=== PATIENT | male | born 1975 | race Caucasian/White ===

== ENCOUNTER 2020-05-19 06:40 | Outpatient (CLI) | payer OTHER, SELFPAY ==
--- NOTE | 2020-05-21 14:37 | SLEEP_ITS ---
Home Sleep Study. DATE OF STUDY: 05/19/2020 ORDERING PHYSICIAN: Dorinda Tillman MD. REASON FOR STUDY: Sleep apnea. 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 His tells him that he snores loudly and he gasps for air at night. This is frequent and very, very loud. He does not awaken from sleep feeling short of breath. He rarely awakens at night with heartburn, belching, or coughing. He wakes up frequently throughout the night. He frequently has trouble sleeping if he has a cold, occasionally wakes up gasping for breath at night, occasionally has breathing problems witnessed by others, rarely sweats excessively at night and does not notice his heart pounding or beating irregularly at night. He occasionally falls asleep during the day rarely involuntarily, never while driving. He does not have loss of muscle tone with strong emotion. He rarely has daytime difficulties due to excessive sleepiness. He does not feel paralyzed on waking or falling asleep. Does not have vivid dreamlike scenes upon awakening or falling asleep and is not afraid to go to sleep. He rarely has nightmares. He rarely remembers his dreams. He rarely has racing thoughts, feelings of sadness, depression or anxiety. He occasionally has muscular tension. He rarely notices parts of his body jerking, rarely kicks at night, rarely has crawly achy feelings in the legs or leg pain at night, rarely has morning jaw pain and does not grind his teeth at night. He rarely is bothered by pain during the day and rarely is awakened by pain during the night. He rarely wakes up feeling stiff in the morning. He occasionally wakes up with sore achy muscles and pain in the neck and spine. Normal bedtime is either 10:00 p.m. or 6:00 a.m. depending on which shift he works. He takes 5 to 10 minutes to fall asleep, waking 2 to 3 times at night for 5 to 10 minutes. When he awakens at night, he will use the bathroom. He wakes in the morning either at 5:00 a.m. or 12 noon. He estimates about 6 or 8 hours of sleep at night. He does work shift work. He does take naps. A short nap is not refreshing. He is usually drowsy in the morning for 2 hours or longer. MEDICAL COMORBIDITIES: 1. Hyperlipidemia. 2. Hypertension. 3. Asthma. 4. Nasal congestion. 5. Low testosterone. MEDICATIONS: 1. Cialis 2.5 mg orally p.r.n. 2. ProAir rescue inhaler 2 puffs q.6 hours p.r.n. shortness of breath. HABITS: Never smoked tobacco. No caffeine or alcohol. DESCRIPTION OF THE STUDY: On the [place] Sleepiness Scale, the score is 13. This was conducted as an unattended type 3 portable home sleep test using 4 channel monitoring with respiratory effort channel, snoring channel, saturation channel, and heart rate channel. The study was scored using [facility] guidelines. The duration was 9 hours 14 minutes longer than his usual sleep episode, which is usually 6 or 8 hours. The AHI is 9, elevated. Respiratory disturbance index is 12. Oxygen desaturation index is 6.6. Lowest desaturation 87%, which is abnormally low. He had 41 apneas. Of these, 85% of his apneas or 35 were central, 15% apneas or 6 were obstructive. He has 41 hypopneas, 742 snoring events, 61 desaturations with no time spent below 88%. Heart rate ranged from 40 to 112. IMPRESSION: This home sleep test shows evidence of at least [id number] obstructive sleep apnea syndrome with an AHI of 9, oxygen desaturation index of 6.6, lowest desaturation 87%, with frequent loud snoring. The majority of the apneas, 85% were central. He does not have a known history of heart failure or stroke, conditions that would predispose to central apneas. Home sleep tests are not as acc
== END 2020-05-19 06:41 | disposition home or self-care (01) ==
LOC: ANHCSM 06:41
PROVIDERS: PCP Internal Medicine; Visit Provider Internal Medicine
DX: G47.33 Obstructive sleep apnea (adult) (pediatric) (principal)
CPT/HCPCS: 95806

== ENCOUNTER 2020-09-01 01:56 | Outpatient (CLI) | payer OTHER, SELFPAY ==
[2020-09-01 22:35] LABS: SARS-CoV-2 RNA PCR Negative
== END 2020-09-01 01:57 | disposition home or self-care (01) ==
LOC: ANHCOVIDDT 01:56
PROVIDERS: PCP Internal Medicine; Visit Provider Internal Medicine Critical Care Medicine
DX: Z20.828 Contact with and (suspected) exposure to other viral communicable diseases (principal); R68.89 Other general symptoms and signs
CPT/HCPCS: 87635; C9803; U0003

== ENCOUNTER 2020-09-03 11:17 | Outpatient (CLI) | payer OTHER, SELFPAY ==
--- NOTE | 2020-10-18 09:21 | WPDSLEEPSTUD ---
Sleep Study Date of Study: 09/03/20 Ordering Provider: Dorinda Tillman MD Interpreting Physician: Patricia King MD Sleep Study Type: CPAP Titration Height: 1.91 m Weight: 108.862 kg Body Mass Index: 29.9 Neck Circumference: 44.45 cm Butler: 12 Reason for Sleep Study sleep apnea, home sleep test May 19, 2020 with an AHI of 9 with 85% of the apneas scored as centrals, oxygen desaturation 87% and frequent loud snoring Sleep History Aaron Bryson is a 45 year old man with multiple sleep complaints. On 05/19/2020 he had a home sleep test showing mild sleep apnea, mainly central events, and presents for a CPAP titration. His tells him that he snores loudly and he gasps for air at night. This is frequent and very, very loud. He does not awaken from sleep feeling short of breath. He rarely awakens at night with heartburn, belching, or coughing. He wakes up frequently throughout the night. He frequently has trouble sleeping if he has a cold, occasionally wakes up gasping for breath at night, occasionally has breathing problems witnessed by others, rarely sweats excessively at night and does not notice his heart pounding or beating irregularly at night. He occasionally falls asleep during the day rarely involuntarily, never while driving. He does not have loss of muscle tone with strong emotion. He rarely has daytime difficulties due to excessive sleepiness. He does not feel paralyzed on waking or falling asleep. Does not have vivid dreamlike scenes upon awakening or falling asleep and is not afraid to go to sleep. He rarely has nightmares. He rarely remembers his dreams. He rarely has racing thoughts, feelings of sadness, depression or anxiety. He occasionally has muscular tension. He rarely notices parts of his body jerking, rarely kicks at night, rarely has crawly achy feelings in the legs or leg pain at night, rarely has morning jaw pain and does not grind his teeth at night. He rarely is bothered by pain during the day and rarely is awakened by pain during the night. He rarely wakes up feeling stiff in the morning. He occasionally wakes up with sore achy muscles and pain in the neck and spine. Normal bedtime is either 10:00 p.m. or 6:00 a.m. depending on which shift he works. He takes 5 to 10 minutes to fall asleep, waking 2 to 3 times at night for 5 to 10 minutes. When he awakens at night, he will use the bathroom. He wakes in the morning either at 5:00 a.m. or 12 noon. He estimates about 6 or 8 hours of sleep at night. He does work shift work. He does take naps. A short nap is not refreshing. He is usually drowsy in the morning for 2 hours or longer. HABITS: Never smoked tobacco. No caffeine or alcohol. [facility] Past Medical History Medical History (Updated 10/18/20 @ 09:39 by Patricia King MD) Asthma Hyperlipidemia Hypertension Low testosterone Nasal congestion Obstructive sleep apnea (~04/2020) Social History Social History (Updated 10/18/20 @ 09:31 by Patricia King MD) Smoking status: Never smoker Alcohol intake: never Substance use: never Medications Medications: 1. Cialis 2.5 mg orally p.r.n. 2. ProAir rescue inhaler 2 puffs q.6 hours p.r.n. shortness of breath. Sleep Procedure This test was performed using the [employer] multiple channel system including EOG, EEG, submental EMG, EKG, nasal and oral airflow using thermistors and nasal pressure sensors, chest and abdominal belts for body position data, and pulse oximetry. Video monitoring was also performed. The study was scored using CMS guidelines. The patient was started on CPAP at 5 cm gradually increasing to 8 cm of water pressure using a medium Borges FX mask with nasal pillows and a heated humidifier. Sleep Architecture The recording time is 453.8 minutes. The sleep time is 363.9 minutes. The sleep efficiency is 80.2%. Sleep latency is 7.9 minutes. REM latency is short at 68 minutes consistent with hypersomnia. there were
[2020-10-18 09:47] VITALS: BMI 29.9
== END 2020-09-03 11:18 | disposition home or self-care (01) ==
LOC: ANHCSM 11:17
PROVIDERS: PCP Internal Medicine; Visit Provider Internal Medicine
DX: G47.33 Obstructive sleep apnea (adult) (pediatric) (principal); E78.5 Hyperlipidemia, unspecified; I10 Essential (primary) hypertension; J45.909 Unspecified asthma, uncomplicated
CPT/HCPCS: 95811

== ENCOUNTER 2021-11-30 18:30 | Emergency (ER) | payer OTHER, SELFPAY ==
--- NOTE | 2021-11-30 18:36 | ED.URI ---
HPI - URI/Sore Throat General Chief Complaint: Upper Respiratory Infection Stated Complaint: cough tight chest Time Seen by Provider: 11/30/21 18:36 Source: patient and RN notes reviewed History of Present Illness HPI Narrative: Patient is a 46-year-old male who presents the urgent care with complaints of a chronic cough since having Covid around [place]. Patient states that the shortness of breath is intermittent and he does have an old albuterol inhaler that he uses as needed. Patient states that he has been having some burning in the chest which she contributes to his history of reflux. Patient states that he has had a full cardiac work-ups with stress test without any cardiac related events. Patient states that he does not have chest pain. States that he has not used anything [id number] for his symptoms. Denies of any recent fevers, nausea, vomiting, difficulty breathing. No other acute complaints. No acute distress noted. Patient aware of the plan of care. Some parts of this dictation were generated by voice recognition software and may contain typographical and/or grammatical inaccuracies. Related Data Home Medications Medication Instructions Recorded Confirmed ezetimibe 10 mg PO DAILY 11/30/21 11/30/21 tadalafil 2.5 mg PO DAILY 11/30/21 11/30/21 Allergies Allergy/AdvReac Type Severity Reaction Status Date / Time No Known Allergies Allergy Unknown Verified 11/30/21 18:44 Review of Systems Review of Systems: CONSTITUTIONAL: Denies fever, chills, or sweats. EYES: Denies visual changes, redness, or discharge. ENT: Denies rhinorrhea, congestion, sore throat, or otalgia. CARDIOVASCULAR: Denies chest pain, palpitations, or edema. RESPIRATORY: Reports of chronic cough and intermittent dyspnea GASTROINTESTINAL: Denies abdominal pain, nausea, vomiting, or diarrhea. GENITOURINARY: Denies dysuria or hematuria. SKIN: Denies rash or itching. MUSCULOSKELETAL: Denies back pain, joint pain, or myalgia. NEUROLOGIC: Denies headache, numbness, or weakness. All other systems reviewed are negative, except as documented in HPI. [facility] Past Medical History Medical History (Updated 11/30/21 @ 18:55 by ROXY Edge) Asthma Hyperlipidemia Hypertension Low testosterone Nasal congestion Obstructive sleep apnea (~04/2020) Social History Social History (Updated 10/18/20 @ 09:31 by Patricia King MD) Smoking status: Never smoker Alcohol intake: never Substance use: never Comments At the time of my signature, I reviewed and agree with the nursing past medical, surgical, social, and family history. There is no relevant family history pertinent to the patient complaint. Exam Narrative: GENERAL: This is a well-nourished, well-developed patient, in no apparent distress. HEAD: normocephalic, atraumatic. EYES: PERRL. Sclera clear/white. Vision is grossly intact. EARS: External ears normal, auditory canals clear and without drainage, TMs normal without perforation. Hearing grossly intact. NOSE: External nose normal with no obvious nasal discharge, nares without redness, no rhinorrhea. THROAT: Mucous membranes moist, posterior pharynx clear. Moderate postnasal drainage NECK: Neck supple CARDIOVASCULAR: Regular rate and rhythm without murmurs, gallops, or rubs. RESPIRATORY: Slight cough throughout exam. Clear to auscultation. Breath sounds equal bilaterally. No wheezes, rales, or rhonchi. SKIN: warm, intact with no suspicious lesions or rash, good texture and turgor. NEURO: awake, alert, and oriented to person, place and time. There were no obvious focal neurologic abnormalities. EXTREMITIES: No clubbing, cyanosis, or edema. Course Course Level of Care: Express Care Visit Vital Signs Vital signs: Vital Signs Temperature 97.2 F L 11/30/21 18:39 Pulse Rate 83 11/30/21 18:39 Respiratory Rate 18 11/30/21 18:39 Blood Pressure 128/111 H 11/30/21 18:39 Pulse Oximetry 99 11/30/21 18:39
[2021-11-30 18:39] VITALS: BP 128/111; PULSE 83; RESP 18; TEMP 36.2; O2SAT 99
== END 2021-11-30 18:57 | disposition home or self-care (01) ==
PROVIDERS: Emergency Provider Nurse Practitioner Family; PCP Internal Medicine
DX: R05.9 Cough, unspecified (principal); U09.9 Post COVID-19 condition, unspecified; J45.909 Unspecified asthma, uncomplicated; E78.5 Hyperlipidemia, unspecified; I10 Essential (primary) hypertension; G47.30 Sleep apnea, unspecified; G47.33 Obstructive sleep apnea (adult) (pediatric)
CPT/HCPCS: 99213; G0463

== ENCOUNTER 2022-06-29 12:27 | Emergency (ER) | payer OTHER, SELFPAY ==
--- NOTE | 2022-06-29 12:28 | ED.URI ---
HPI - URI/Sore Throat General Chief Complaint: Upper Respiratory Infection Stated Complaint: congestion and sinus pressure Time Seen by Provider: 06/29/22 12:28 Source: patient and RN notes reviewed History of Present Illness HPI Narrative: Patient is a 46-year-old male who presents the urgent care with complaints of sinus pressure/congestion, sore throat. Patient states that symptoms started yesterday and while he was working overnight he developed a cough and a headache. Patient denies any ill exposures. States that he had a negative at home COVID test. Patient has been taking Robitussin for his symptoms. No other acute complaints. No acute distress noted. Patient aware of the plan of care. Some parts of this dictation were generated by voice recognition software and may contain typographical and/or grammatical inaccuracies. Related Data Home Medications Medication Instructions Recorded Confirmed tadalafil 2.5 mg tablet 2.5 mg PO DAILY 11/30/21 06/29/22 evolocumab 140 mg/mL subcutaneous 140 mg subcut DAILY 06/29/22 06/29/22 pen injector (Repatha SureClick) Allergies Allergy/AdvReac Type Severity Reaction Status Date / Time No Known Allergies Allergy Unknown Verified 06/29/22 12:41 Review of Systems Review of Systems: CONSTITUTIONAL: Denies fever, chills, or sweats. EYES: Denies visual changes, redness, or discharge. ENT: Reports of congestion, sinus pressure, sore throat CARDIOVASCULAR: Denies chest pain, palpitations, or edema. RESPIRATORY: Reports of cough GASTROINTESTINAL: Denies abdominal pain, nausea, vomiting, or diarrhea. GENITOURINARY: Denies dysuria or hematuria. SKIN: Denies rash or itching. MUSCULOSKELETAL: Denies back pain, joint pain, or myalgia. NEUROLOGIC: Reports of headache All other systems reviewed are negative, except as documented in HPI. [facility] Past Medical History Medical History (Updated 06/29/22 @ 13:04 by ROXY Edge) Asthma Hyperlipidemia Hypertension Low testosterone Nasal congestion Obstructive sleep apnea (~04/2020) Social History Social History (Updated 10/18/20 @ 09:31 by Patricia King MD) Smoking status: Never smoker Alcohol intake: never Substance use: never Comments At the time of my signature, I reviewed and agree with the nursing past medical, surgical, social, and family history. There is no relevant family history pertinent to the patient complaint. Exam Narrative: GENERAL: This is a well-nourished, well-developed patient, in no apparent distress. HEAD: normocephalic, atraumatic. EYES: PERRL. Sclera clear/white. Vision is grossly intact. EARS: External ears normal, auditory canals clear and without drainage, TMs normal without perforation. Hearing grossly intact. NOSE: External nose normal with no obvious nasal discharge, nares without redness, no rhinorrhea. THROAT: Mucous membranes moist. Moderate erythema noted posterior oropharynx with mild bilateral tonsillar edema, moderate postnasal drainage NECK: Neck supple, non-tender without lymphadenopathy CARDIOVASCULAR: Regular rate and rhythm without murmurs, gallops, or rubs. RESPIRATORY: Clear to auscultation. Breath sounds equal bilaterally. No wheezes, rales, or rhonchi. SKIN: warm, intact with no suspicious lesions or rash, good texture and turgor. NEURO: awake, alert, and oriented to person, place and time. There were no obvious focal neurologic abnormalities. EXTREMITIES: No clubbing, cyanosis, or edema. Course Course Level of Care: Express Care Visit Vital Signs Vital signs: Vital Signs Temperature 98.9 F 06/29/22 12:30 Pulse Rate 72 06/29/22 12:30 Respiratory Rate 16 06/29/22 12:30 Blood Pressure 133/74 06/29/22 12:30 Pulse Oximetry 98 06/29/22 12:30 Oxygen Delivery Room Air 06/29/22 12:30 Temperature 98.9 F 06/29/22 12:30 Pulse Rate 72 06/29/22 12:30 Respiratory Rate 16 06/29/22 12:30 Blood Pressure 133/74 06/29/22 12:30 Pulse Oxim
[2022-06-29 12:30] VITALS: BP 133/74; PULSE 72; RESP 16; TEMP 37.2; O2SAT 98
== END 2022-06-29 13:07 | disposition home or self-care (01) ==
PROVIDERS: Emergency Provider Nurse Practitioner Family; PCP Internal Medicine
DX: J02.0 Streptococcal pharyngitis (principal); J45.909 Unspecified asthma, uncomplicated; E78.5 Hyperlipidemia, unspecified; I10 Essential (primary) hypertension; G47.33 Obstructive sleep apnea (adult) (pediatric)
CPT/HCPCS: 87880; 99213; G0463

== ENCOUNTER → 2022-11-14 08:45 | Outpatient (CLI) | payer OTHER, SELFPAY ==
--- NOTE | ~2022-11-14 | US_ITS ---
EXAMINATION: US abdomen complete DATE: 11/14/2022 09:12 INDICATION: Right upper quadrant pain TECHNIQUE: Multiple grayscale and Doppler ultrasound images of the abdomen were obtained. COMPARISON: None available FINDINGS: The head and body of the pancreas are normal. The pancreatic tail is obscured by bowel gas. The liver demonstrates increased echogenicity, heterogenous echotexture, and decreased through trans mission. No surface nodularity. Normal hepatopetal flow in the main portal vein. The gallbladder is n ormal with no abnormal wall thickening, pericholecystic fluid or stones. The normal common bile duct measures 4 mm. There was no sonographic Sparrow sign. The visualized portions of the aorta and inferio r vena cava are normal. The spleen is normal in appearance and measures 12.2 cm. The right kidney measures 11.4 x 5.3 x 5.1 c m. The left kidney measures 5.3 x 5.5 x 5.2 cm. The kidneys demonstrate normal parenchymal echogenici ty. There is no hydronephrosis. IMPRESSION: 1. Diffuse hepatic steatosis. Reviewed, dictated and finalized at location A. AL SCIENCES PROFESSOR
== END ==
PROVIDERS: PCP Internal Medicine; Visit Provider Internal Medicine
DX: R10.11 Right upper quadrant pain (principal); K76.0 Fatty (change of) liver, not elsewhere classified
CPT/HCPCS: 76700

== ENCOUNTER 2023-01-03 09:31 | Outpatient (CLI) | payer OTHER, SELFPAY ==
--- NOTE | ~2023-01-03 | NM_ITS ---
EXAMINATION: NM hepatobiliary wo pharm DATE: 01/03/2023 12:26 INDICATION: Right upper quadrant abdominal pain. COMPARISON: Ultrasound 11/14/22 TECHNIQUE: 5 mCi Tc-99m mebrofenin (Choletec) was administered intravenously. Scintigraphic images o f the abdomen were obtained for one hour. Then, the patient drank 8 oz Ensure, and imaging was contin ued for 60 minutes. FINDINGS: There is normal clearance of radiotracer from the blood pool. There is homogeneous tracer u ptake by the liver. Activity progresses to the bowel and gallbladder. Gallbladder ejection fraction (GBEF) was 36%. Note that with this technique, normal GBEF >= 33%. IMPRESSION: 1. Normal hepatobiliary scintigraphy. Reviewed, dictated and finalized at location A. TE COMPUTER TERMINAL OPERATOR
== END 2023-01-03 09:32 | disposition home or self-care (01) ==
PROVIDERS: PCP Internal Medicine; Visit Provider Internal Medicine
DX: R10.11 Right upper quadrant pain (principal)
CPT/HCPCS: 78226; A9537

== ENCOUNTER → 2023-02-23 10:11 | Outpatient (CLI) | payer OTHER, SELFPAY ==
--- NOTE | ~2023-02-23 | CT_ITS ---
CT of the Abdomen and Pelvis: Indication: Abdominal pain Technique: 2.5 mm axial scans were obtained through the abdomen and pelvis following intravenous adm inistration of 100 cc of Omnipaque 350. Dose reduction technique was used on this scan by utilizing a utomated exposure control and iterative reconstruction technique. The dose-length product (DLP) was 1 105.48 mGy-cm. Findings: Scans through the lung bases are unremarkable. The liver, spleen, pancreas, gallbladder, adrenals and kidneys are within normal limits. No evidence of aortic aneurysm. No lymphadenopathy. No bowel obstruction or bowel wall thickening. There is no evidence to suggest acute appendicitis. Images through the pelvis were performed. Urinary bladder unremarkable. Prostate gland is enlarged. N o ascites. Bilateral L5 pars interarticularis defects are present, with 13 mm anterolisthesis of L5 o manjinder S1. Impression: No acute abnormality. Enlarged prostate gland. Bilateral L5 pars intraarticular defects, with 13 mm anterolisthesis of L5 over S1. Reviewed, dictated and finalized at location . Impression: No acute abnormality. Enlarged prostate gland. Bilateral L5 pars intraarticular defects, with 13 mm anterolisthesis of L5 over S1.
== END ==
PROVIDERS: PCP Internal Medicine; Visit Provider Internal Medicine
DX: R10.11 Right upper quadrant pain (principal); N40.0 Benign prostatic hyperplasia without lower urinary tract symptoms
CPT/HCPCS: 74177; Q9967

== ENCOUNTER → 2023-05-29 10:31 | Outpatient (CLI) | payer OTHER, SELFPAY ==
--- NOTE | ~2023-05-29 | XR_ITS ---
EXAMINATION: XR ribs RT 2V w CXR 2V Exam Date/Time: 05/29/2023 11:10 CDT HISTORY: RIGHT LOW CHEST RIB PAIN Comparison: None available. RESULT: Lines, tubes, and devices: None. Lungs and pleura: Calcified right upper lung granuloma. Otherwise clear. Cardiothymic silhouette: Stable. Other: No acute osseous or upper abdominal finding. IMPRESSION: No acute cardiopulmonary process. No acute osseous finding in the right ribs. Reviewed, dictated and finalized at location K.
== END ==
PROVIDERS: PCP Internal Medicine; Visit Provider Internal Medicine
DX: R07.81 Pleurodynia (principal)
CPT/HCPCS: 71046; 71100